=== PATIENT | female | born 1985 ===

== ENCOUNTER 2017-06-03 02:13 | Day surgery (SDC) | payer MEDICAID ==
[2017-06-03] VITALS (16 sets, daily range): BP systolic 73–122; BP diastolic 38–82
[~2017-06-03] VITALS: Ht 172.7 cm; Wt 75.3 kg
[~2017-06-03 02:13] MED LIST: BUPR-126 PO; ESCI20TA38 PO
[2017-06-03] MEDS: NORMOSOL R SOLN(*) 1000 ML BAG 1,000 ML IV PRN ×3 (08:19→15:02)
[2017-06-03] MEDS ORDERED: MIDAZOLAM 2 MG/2 ML VIAL IVP PRN (08:20)
[2017-06-03] MEDS ORDERED: LIDOCAINE/SOD BICARB 8.4% SYR ID ONE (08:20)
[2017-06-03] MEDS ORDERED: FAMOTIDINE 20 MG TAB PO ONE (08:20)
[2017-06-03 08:25] LABS: PLATELET COUNT, AUTOMATED 254 K/uL (150-450)
[2017-06-03] MEDS ORDERED: fentaNYL CITR 250 MCG/5 ML AMP ONE (08:27)
[2017-06-03] MEDS ORDERED: LIDOCAINE 2% IV 100 MG/5ML SYR ONE (08:27)
[2017-06-03] MEDS ORDERED: PROPOFOL EMUL(*) 10MG/ML 20 ML 20 ML ONE (08:28)
[2017-06-03] MEDS ORDERED: ROPIVACAINE 0.2% 20 ML VIAL ONE (09:10)
[2017-06-03] MEDS ORDERED: ROCURONIUM BROM 10 MG/ML 5 ML ONE (09:30)
[2017-06-03] MEDS ORDERED: DEXAMETHASONE SOD 4 MG/ML VIAL ONE (09:32)
[2017-06-03] MEDS ORDERED: ONDANSETRON 4 MG/2 ML VIAL ONE (09:33)
[2017-06-03] MEDS ORDERED: KETOROLAC 30 MG/ML VIAL ONE (09:33)
--- NOTE | 2017-06-03 09:39 | History & Physical ---
History of Present Illness Age of Patient: 31 : 1 Para or TPAL: 1 Chief Complaint Desires Permeant Tubal ligation History of Present Illness Pt is a 31 y/o who presented to clinic for a consultation for a permanent control. Pt reports that she no longer desires to have children and desires tubal ligation. X1 History Obstetrical History: Past Medical History: Depression on Lexapro 20 mg History of Breast implants NKDA Allergies: Coded Allergies: codeine (Verified Allergy, Intermediate, vomiting, fainting, 05/27/17) Social History: Denies use of Alcohol, Tobacco, or recreational drug use. Med Rec Home Meds Reported Medications Bupropion Hcl (WELLBUTRIN SR) 150 Mg Tablet.er, 150 MG PO QDAY, TAB 05/27/17 Escitalopram Oxalate (LEXAPRO) 20 Mg Tablet, 20 MG PO QDAY, TAB 05/27/17 Review of Systems All Systems Reviewed/Normal: Yes, Except as Noted Constitutional: No Fever, No Weight Loss, No Weight Gain, No Chills, No Night Sweats, No Other Neurological: No Syncope, No Confusion, No Weakness, No Dizziness, No Slurred Speech, No Other Eyes: No Vision Change, No Loss of Vision, No Photophobia, No Other ENT: No Hearing Loss, No Sinus Congestion, No Sore Throat, No Ear Ache, No Tinnitus, No Other Cardiovascular: No Chest Pain, No Palpitations, No Orthostatic Hypotension, No Other Respiratory: No Shortness of Breath, No Cough, No Wheezing, No Other Gastrointestinal: No Nausea, No Vomiting, No Diarrhea, No Dysphagia, No Constipation, No Early Satiety, No Hematemesis, No Hematochezia, No Melena, No Abdominal Pain, No Other Genitourinary: No Dysuria, No Hematuria, No Urinary Incontinence, No Other Musculoskeletal: No Pain, No Sprain, No Strain, No Impaired Mobility, No Other Psychiatric: No Depression, No Anxiety, No Other Exam General Exam Vital Signs Vital Signs Date Time Temp Pulse Resp B/P (MAP) Pulse Ox O2 Delivery O2 Flow Rate FiO2 06/03/17 08:17 98.5 87 16 122/70 (87) 98 Room Air General Apperance: Alert/Awake/No Acute Distress Neuro: No Gross deficits Eyes: Normal Extraocular Movement & Vison, PERRLA ENT: Normal Cardiovascular: Regular Rate and Rhythm Respiratory: No Respiratory Distress, Clear to Auscultation Abdomen: Soft, Non-Tender, Non-Distended : Normal Musculoskeletal: No Weakness/Pain Extremities: No Cyanosis,Clubbing or Edema Integumentary: Skin Intact without Lesions or Rash Psychological: Alert & Oriented X3, Appropriate Mood & Affect Medical Decision Making Data Points Result Diagram: 06/03/17 0810 Pre-Admit Course Medical Record Review: Yes VTE Prophylasis: Adult Deep Vein Thrombosis/Pulmonary: No Assessment and Plan BARREL COOPER Assessment: Stable BARREL COOPER Plan: Routine Post-Op Care Problems: (1) Consultation for female sterilization Assessment & Plan: Proceed with Laparoscopic BTL. Follow up in 2 weeks post operative. RAMÍREZ BOWEN DO Jun 03, 2017 09:39
--- NOTE | 2017-06-03 09:42 | OB/GYN Discharge Summary ---
Discharge Summary Reason for Hosp/Final Diag: (1) Consultation for female sterilization Hospital Course & Plan: Pt presented for a Laparoscopic BTL. Underwent procedure with out any difficulty. Went to PACU then recovery where she was discharged home. Lates Vital Signs Vital Signs Date Time Temp Pulse Resp B/P (MAP) Pulse Ox O2 Delivery O2 Flow Rate FiO2 06/03/17 08:17 98.5 87 16 122/70 (87) 98 Room Air Weight (Pounds): 166 Result Diagram: 06/03/17 0810 Condition: Improved Discharge: Home Home Meds Reported Medications Bupropion Hcl (WELLBUTRIN SR) 150 Mg Tablet.er, 150 MG PO QDAY, TAB 05/27/17 Escitalopram Oxalate (LEXAPRO) 20 Mg Tablet, 20 MG PO QDAY, TAB 05/27/17 [facility] [phone], Dr. Patterson [phone] Follow up in: 2 wks PO Discharge Diet: As Tolerates, Resume Prior Admit Diet, Increase Fluid Intake Discharge Activity: As Tolerates, Pelvic Rest RAMÍREZ PATTERSON DO Jun 03, 2017 09:42
[2017-06-03] MEDS ORDERED: SUGAMMADEX SOD 200 MG/2 ML SDV ONE (10:02)
[2017-06-03] MEDS ORDERED: LR(*) 1000 ML BAG 1,000 ML IV ONE (10:18)
--- NOTE | 2017-06-03 10:18 | Post Operative Note ---
Operative Note - CERTIFIED PEST CONTROL TECHNICIAN Operative Day Date: Jun 03, 2017 Time: 10:16 Physicians Surgeon: Ramírez Patterson Anesthesia: GET 20 cc 0.2% Rupivicaine Diagnosis Pre-Op Diagnosis: 31 y/o Desires sterility Post-Op Diagnosis: same Procedure Findings: Normal uterus approximately 8 week size. Normal Tubes and ovaries bilaterally. Falope rings in the mid isthmus region of the falopian tube after procedure completion. Procedure(s): laparoscopic BTl with Falope rings Specimen Removed:(Maybe N/A): 0 Complications: known Fluids Fluids: 600 cc LR U/o 250 CC Estimated Blood Loss: minimal Dictated Date OP Note Dictated: Jun 03, 2017 Time OP Note Dictated: 10:24 RAMÍREZ PATTERSON DO Jun 03, 2017 10:18
[2017-06-03] MEDS ORDERED: METOCLOPRAMIDE 10 MG/2 ML SDV IVP PRN (10:20)
[2017-06-03] MEDS ORDERED: IBUP800T37 PO (10:25)
[2017-06-03] MEDS ORDERED: PER PO (10:25)
[2017-06-03] MEDS ORDERED: fentaNYL CITR 100 MCG/2 ML AMP ONE (10:27)
[2017-06-03] MEDS ORDERED: LIDOCAINE/SOD BICARB 8.4% SYR ONE (10:38)
[2017-06-03] MEDS ORDERED: PROMETHAZINE 25 MG/ML 1 ML AMP ONE (10:48)
[2017-06-03] MEDS ORDERED: IBUPROFEN 800 MG TAB PO SCH (18:00)
--- NOTE | 2017-06-03 18:55 | OPERATIVE REPORT 1 ---
EVENT DATE: June 03, 2017 SURGEON: Gerardo Patterson DO ANESTHESIOLOGIST: Junior Denson MD ANESTHESIA: General endotracheal intubation with 20 mL of 0.2% ropivacaine. PREOPERATIVE DIAGNOSES 1. A 31-year-old 1, para 1. 2. Desires sterility. POSTOPERATIVE DIAGNOSES 1. A 31-year-old 1, para 1. 2. Desires sterility. PROCEDURE PERFORMED Laparoscopic bilateral tubal ligation with Falope rings. FINDINGS Normal fallopian tubes bilaterally. Normal ovaries bilaterally. Uterus 8 weeks size. Smooth liver. Normal-appearing gallbladder. Falope rings in the mid isthmus region on the fallopian tubes after procedure completion. ESTIMATED BLOOD LOSS Minimal. FLUIDS Lactated Ringer's 600 mL. URINE OUTPUT 250 mL PATHOLOGY None. COMPLICATIONS None known. CONDITION Stable to the PACU, then to recovery. INDICATIONS AND CONSENT The patient is a 31-year-old 1, para 1, who presented to clinic for consultation on tubal ligation. The patient desired permanent sterility. The patient was counseled on risks, benefits, and alternatives and had appropriate consents signed. She was scheduled for surgery accordingly. DESCRIPTION OF PROCEDURE The patient was taken to the operating room where she had a general endotracheal intubation with anesthesia achieved. She was then placed in the dorsal lithotomy position. She was prepped and draped in the usual sterile manner. A sterile speculum was placed in the vagina to help visualize the cervix. An Allis clamp was placed on the anterior lip of the cervix. The uterus was sounded to 8 cm. A uterine manipulator was placed inside the uterus to help with manipulation during the procedure. Once the manipulator was placed , the surgeon's gloves were changed and the speculum removed. The attention was then turned to the abdomen. A 5 mm incision was created in the umbilicus with an 11 blade scalpel. A Veress needle was used to achieve a pneumoperitoneum. Once the pneumoperitoneum was achieved, direct laparoscopic entry through a 5 mm Visiport was performed with the area of entry inspected and found to be without injury. The 8 mm trocar was then placed 2 cm above the pubic symphysis. The right and left ovaries and fallopian tubes were easily visualized. The right fallopian tube was grasped in the mid isthmus region with the Falope ring applicator. The Falope ring was applied with minimal difficulty, and immediate blanching of that segment was noted. Attention was then turned to the left fallopian tube. The left fallopian tube was grasped with the Falope ring applicator and brought into the applicator device with the Falope band placed over the mid isthmus region with immediate blanching noted. At this point, pictures were taken. The 8 mm trocar was removed under laparoscopic visualization and noted to be hemostatic. The pneumoperitoneum was released, and the trocars were removed from the abdomen. The skin incisions were then closed with a 4-0 Monocryl in an interrupted manner and Dermabond placed over the incisions. The uterine manipulator was then removed from the vagina. The patient was cleaned, awakened, and transferred to the recovery room in stable condition. JOHNNY
== END 2017-06-03 11:35 | disposition home or self-care (01) ==
LOC: OR 02:13
PROVIDERS: ATTEND Student in an Organized Health Care Education/Training Program
DX: Z30.2 Encounter for sterilization (principal); F32.9 Major depressive disorder, single episode, unspecified
CPT/HCPCS: 36415; 58615; 84703; 85025; J1100; J1885; J2001; J2405; J2550; J2704; J2795; J3010

== ENCOUNTER → 2018-04-19 | Outpatient (CLI) | payer MEDICAID ==
[~2018-04-19] MED LIST changes: +IBUP800T37 PO; +MELA5TAB6 PO; +PER PO
--- NOTE | 2018-04-19 10:26 | RADIOLOGY IMAGING REPORT ---
FACILITY: [facility] - [place], [place] PATIENT NAME: Kathrine Aquino : 1985 MR: [id number] V: [id number] EXAM DATE: ORDERING PHYSICIAN: KEN AMOS TECHNOLOGIST: Location: [facility] - [place] Patient: Kathrine Aquino : 1985 Visit/Account:[id number] Date of Sevice: 04/19/2018 KIDNEYS HISTORY: Cystic structure found on CT. COMPARISON: CT dated April 05, 2018. FINDINGS: Kidneys: Right kidney- 9.9 x 3.7 x 4.7 cm with normal parenchymal thickness and echogenicity. Left kidney- 10.1 x 4.6 x 4.8 cm with normal parenchymal thickness and echogenicity. Cystic lesion w ithin the superior pole the left kidney with mural peripheral calcification. Lesion measures 1.3 x 1 .4 x 1.1 cm. No definitive solid noncalcified component identified. Uniform and symmetric blood flow in each kidney by Doppler ultrasound. Hydronephrosis: None. Bladder: Unremarkable. Abdominal aorta and IVC: Patent by Doppler ultrasound. IMPRESSION: 1. Cystic lesion with mural calcified peripheral calcification measuring up to 1.4 cm. This represe nts a Bosniak 2F lesion. Six-month follow-up is recommended to ensure stability. Report Dictated By: Donavan Vera MD at 04/19/2018 10:03 AM Report E-Signed By: Donavan Vera MD at 04/19/2018 10:07 AM WSN:[email or web address]
== END ==
LOC: US 02:38
PROVIDERS: ATTEND Nurse Practitioner Family
DX: N28.1 Cyst of kidney, acquired (principal)
CPT/HCPCS: 76705

== ENCOUNTER → 2018-05-05 | Outpatient (CLI) | payer MEDICAID ==
[~2018-05-05] MED LIST changes: +BARIUM SULFATE 176 GM BTL PO ONE; +BARIUM SULFATE 340 GM POWD ONE; +PANT40TA65 PO
--- NOTE | 2018-05-05 10:18 | RADIOLOGY IMAGING REPORT ---
FACILITY: [facility] - [place] PATIENT NAME: Kathrine Aquino : 1985 MR: [id number] V: [id number] EXAM DATE: ORDERING PHYSICIAN: ROBERT PETERSON TECHNOLOGIST: Location: [facility] Patient: Kathrine Aquino : 1985 Visit/Account:[id number] Date of Sevice: 05/05/2018 PELVIC HISTORY: Right lower quadrant pain, intermittent gas and bloating TECHNIQUE: Transvaginal and transabdominal ultrasound pelvis. COMPARISON: CT on pelvis April 05, 2018 FINDINGS: Uterus: ; 8.6 cm length x 4.2 cm AP x 6 cm transverse. Myometrium: There is a 1.8 x 1.6 x 1.7 cm anterior fibroid in the mid to lower uterine body Endometrium: Unremarkable; double thickness 11.1 mm. Cervix: Nabothian cysts. Ovaries: Right - 3.3 x 4.1 x 2.6 cm. There is a 1.8 cm cyst in the right ovary with slightly irregular w alls may represent a partially collapsed cyst Left - 2.8 x 2.9 x 1.9 cm. Blood flow is documented in each ovary by duplex Doppler ultrasound. Adnexa: Grossly unremarkable. Free pelvic fluid: Trace. IMPRESSION: 1.8 cm anterior fibroid in the mid to lower uterine body 1.8 cm cyst in the right ovary with slightly irregular aiken may represent a partially collapsed cyst with a trace amount of free pelvic fluid Report Dictated By: Sherry Tapia MD at 05/05/2018 10:03 AM Report E-Signed By: Sherry Tapia MD at 05/05/2018 10:12 AM WSN:[email or web address]
--- NOTE | 2018-05-05 10:18 | RADIOLOGY IMAGING REPORT ---
FACILITY: [facility] - [place] PATIENT NAME: Kathrine Aquino : 1985 MR: [id number] V: [id number] EXAM DATE: ORDERING PHYSICIAN: ROBERT PETERSON TECHNOLOGIST: Location: [facility] - [place] Patient: Kathrine Aquino : 1985 Visit/Account:[id number] Date of Sevice: 05/05/2018 US ABD LIMITED ULTRASOUND HISTORY: Nausea and vomiting COMPARISON: CT abdomen pelvis April 05, 2018 FINDINGS: Gallbladder: There are multiple stones seen within the gallbladder. The largest measures approximate ly 2 cm in diameter The gallbladder neck Is a negative Bullard sign by technologist notation. The gallbladder wall measur ed 3.4 mm in thickness. Liver: Negative. Common duct: Normal, 2.7 mm diameter. Pancreas: Partially obscured by bowel, visualized aspects unremarkable. Right kidney: There is very mild fullness of the right renal pelvis. The right kidney measures 11.2 cm in length Upper abdominal aorta and IVC: Patent. Ascites: None visualized. IMPRESSION: The gallbladder is filled with stones largest measuring approximately 2 cm in diameter. No evidence of positive Bullard sign or biliary ductal dilatation. The gallbladder wall measures 3.4 mm in thickness Mild fullness of the right renal pelvis Report Dictated By: Sherry Tapia MD at 05/05/2018 10:12 AM Report E-Signed By: Sherry Tapia MD at 05/05/2018 10:15 AM WSN:[email or web address]
--- NOTE | 2018-05-05 12:12 | RADIOLOGY IMAGING REPORT ---
FACILITY: [facility] PATIENT NAME: Kathrine Aquino : 1985 MR: [id number] V: [id number] EXAM DATE: ORDERING PHYSICIAN: ROBERT PETERSON TECHNOLOGIST: Location: [facility] [place] Patient: Kathrine Aquino : 1985 Visit/Account:[id number] Date of Sevice: 05/05/2018 Exam type: XR UPPER GI SERIES W/O KUB History: Abdomen pain, difficulty swallowing Comparison: None. Findings: Double contrast upper GI series was performed with thick and thin barium and air contrast the patient was hesitant to swallow a large bolus of barium therefore the esophagus was not completely distended . No significant narrowing or mucosal erosion was identified within the esophagus. Gastroesophageal reflux was not observed. No abnormality of the stomach duodenal bulb or duodenal C-loop was identif ied.. The fluoroscopy dose area product was 529.74 micro-Grant per meter squared IMPRESSION: 1. Unremarkable upper GI series. Of note the patient was hesitant to swallow large bolus of barium there for the esophagus was not com pletely distended however there is no demonstration of significant narrowing, mucosal erosion or stefanie roesophageal reflux Report Dictated By: Sherry Tapia MD at 05/05/2018 12:01 PM Report E-Signed By: Sherry Tapia MD at 05/05/2018 12:04 PM WSN:[email or web address]
== END ==
LOC: US 01:20
PROVIDERS: ATTEND Surgery
DX: D25.9 Leiomyoma of uterus, unspecified (principal); N83.201 Unspecified ovarian cyst, right side
CPT/HCPCS: 74240; 76705; 76830; 76856

== ENCOUNTER 2018-06-22 01:43 | Day surgery (SDC) | payer MEDICAID ==
[~2018-06-22] VITALS: Ht 172.7 cm; Wt 77.1 kg
[2018-06-22] VITALS (9 sets, daily range): BP systolic 68–126; BP diastolic 26–79
[~2018-06-22 01:43] MED LIST changes: +ACETAMINOPHEN 500 MG TAB PO ONE; +AMPICILLIN/SULBACT (*) 3 GM VL 3 GM in NS(*) 0.9% 100 ML BAG 100 ML IVPB ONE; +ASCO-182 PO; -BARIUM SULFATE 176 GM BTL PO ONE; -BARIUM SULFATE 340 GM POWD ONE; +FAMOTIDINE 20 MG TAB PO ONE; +INDOCYANINE GREEN 25 MG VIAL IVP ONE; +LIDOCAINE/SOD BICARB 8.4% SYR ID ONE; +MIDAZOLAM 2 MG/2 ML VIAL IVP PRN; +NORMOSOL R SOLN(*) 1000 ML BAG 1,000 ML IV PRN; +PREGABALIN 150 MG CAPSULE PO ONE
[2018-06-22] MEDS ORDERED: AMPICILLIN/SULBACT (*) 3 GM VL 3 GM in NS(*) 0.9% 100 ML BAG 100 ML IVPB ONE (10:40)
[2018-06-22] MEDS ORDERED: PREGABALIN 150 MG CAPSULE PO ONE (10:40)
[2018-06-22] MEDS ORDERED: NORMOSOL R SOLN(*) 1000 ML BAG 1,000 ML IV PRN (10:40)
[2018-06-22] MEDS ORDERED: FAMOTIDINE 20 MG TAB PO ONE (10:40)
[2018-06-22] MEDS ORDERED: ACETAMINOPHEN 500 MG TAB PO ONE (10:40)
[2018-06-22] MEDS ORDERED: MIDAZOLAM 2 MG/2 ML VIAL IVP PRN (10:40)
[2018-06-22] MEDS ORDERED: LIDOCAINE/SOD BICARB 8.4% SYR ID ONE (10:40)
[2018-06-22] MEDS ORDERED: ROPIVACAINE 0.5% 20 ML VIAL ONE (10:43)
[2018-06-22] MEDS ORDERED: ONDANSETRON 4 MG/2 ML VIAL ONE (11:12)
[2018-06-22] MEDS ORDERED: DEXAMETHASONE SOD 4 MG/ML VIAL ONE (11:12)
[2018-06-22] MEDS ORDERED: METOCLOPRAMIDE 10 MG/2 ML SDV ONE (11:12)
[2018-06-22] MEDS ORDERED: LIDOCAINE MPF 1% 5 ML VIAL ONE (11:12)
[2018-06-22] MEDS ORDERED: SUGAMMADEX SOD 200 MG/2 ML SDV ONE (11:12)
[2018-06-22] MEDS ORDERED: PROPOFOL EMUL(*) 10MG/ML 20 ML 20 ML ONE (11:12)
[2018-06-22] MEDS ORDERED: fentaNYL CITR 250 MCG/5 ML AMP ONE (11:15)
[2018-06-22] MEDS ORDERED: INDOCYANINE GREEN 25 MG VIAL IVP ONE (11:40)
[2018-06-22] MEDS ORDERED: DOCU-416 PO (12:58)
[2018-06-22] MEDS ORDERED: OXYC-373 PO (12:58)
--- NOTE | 2018-06-22 13:01 | Short(Outpt) Discharge Summary ---
Discharge Summary Reason for Hosp/Final Diag: (1) Cholelithiasis Status: Chronic Hospital Course & Plan: Robotic cholecystectomy completed without problems. Departure Discharge to: Home, Self Care Discharge Instructions Home Meds Active Scripts Docusate Sodium (COLACE) 100 Mg Capsule, 1 CAP PO BID, #30 CAPSULE 0 Refills Prov:ROBERT PETERSON MD 06/22/18 Oxycodone Hcl/Acetaminophen (OXYCODONE-ACETAMINOPHEN 5-325) 1 Each Tablet, 1 TAB PO Q4H PRN for PAIN, #20 TAB 0 Refills Prov:ROBERT PETERSON MD 06/22/18 Reported Medications Ascorbic Acid (VITAMIN C) 500 Mg Tablet, 500 MG PO QDAY, TAB 05/29/18 Melatonin (MELATONIN) 5 Mg Tablet, 1 TAB PO QHS 04/17/18 Follow up Referrals: General Surgery - 07/10/18 @ Surgery, General with ROBERT PETERSON MD You have a follow up appointment scheduled with Dr. Peterson on 07/10/18, at 9:30am. Diet: Regular Activity: No Heavy Lifting Special Instructions: You may removed the white surgical dressings on 06/24/18, then you can shower. After showering, leave the incisions open to air but leave the steristrips in place until they fall off on their own. Do not immerse the incisions for 2 weeks. Avoid any activity that involves straining or lifting more than 10 pounds for 2 weeks after surgery. Problem Qualifiers (1) Cholelithiasis: Cholelithiasis location: gallbladder Cholecystitis presence: without cholecystitis Biliary obstruction: without biliary obstruction Qualified Codes: K80.20 - Calculus of gallbladder without cholecystitis without obstruction ROBERT PETERSON MD Jun 22, 2018 13:01
--- NOTE | 2018-06-22 13:07 | Post Operative Progress Note ---
Post Operative Progress Note Date: Jun 22, 2018 Time: 13:01 Surgeon: Adriane Dictation number: [id number] Anesthesia: GETA by Dr. Ceballos Pre-Op Diagnosis: Symptomatic Gallstones Post-Op Diagnosis: ZOE Findings: C/W dx Procedure(s): Robotic cholecystectomy Specimen Removed:(May be N/A): GB and contents Complications: None Fluids: See anesthesia record Estimated Blood Loss: Minimal Date OP Note Dictated: Jun 22, 2018 Time OP Note Dictated: 13:02 ROBERT PETERSON MD Jun 22, 2018 13:07
[2018-06-22] MEDS ORDERED: fentaNYL CITR 100 MCG/2 ML AMP ONE (13:21)
--- NOTE | 2018-06-22 13:30 | OPERATIVE REPORT 1 ---
EVENT DATE: June 22, 2018 SURGEON: Lebron Forrest MD ANESTHESIOLOGIST: Kashmir Ceballos MD ANESTHESIA: General endotracheal. PREOPERATIVE DIAGNOSIS Symptomatic gallstones. POSTOPERATIVE DIAGNOSIS Symptomatic gallstones. PROCEDURE PERFORMED Robotic cholecystectomy. COMPLICATIONS None. CONDITION Stable. ESTIMATED BLOOD LOSS Minimal. SPECIMEN Gallbladder and contents. INDICATIONS This is a 32-year-old female who presented to my office with postprandial right upper quadrant abdominal pain with nausea and bloating. Ultrasound revealed gallbladder full of stones and she was requesting to have her gallbladder removed. PROCEDURE The patient was brought into the operating room and placed supine on the operating table. General endotracheal anesthesia was administered and her abdomen was prepped and draped in the sterile fashion. A time-out was completed. I injected the infraumbilical skin with 0.5% ropivacaine plain. I made a curvilinear smiley face incision in the infraumbilical rim and dissected through the dermis and into the subcutaneous fat. I identified the midline fascia and made a vertical incision in the midline fascia, grasped the fascial edge with Olvin clamps and bluntly entered the peritoneal cavity with my finger. I placed two interrupted 0 Vicryl sutures transversely through the vertical fascial defect and inserted a robotic Hill type 12 mm port through this wound and secured into place with sutures. I insufflated the abdomen to a pressure of 15 mmHg and then under direct visualization inserted an 8 mm robotic port in the right mid abdomen and two 8 mm robotic ports in the left abdomen, one in the left subcostal space in the anterior axillary line and fci between this 8 mm port and the umbilical port. Next, I had the patient placed in reverse Trendelenburg and planed towards her left and removed the viscera from the right upper quadrant and brought the robot in and docked it and targeted it and inserted the instruments. I then scrubbed out and went to the console and grasped the fundus of the gallbladder and retracted towards the patient's right shoulder and retracted the infundibulum towards the patient's right hip. Then patient's anatomy was very clear and I could clearly see the cystic duct going into the common duct. I then used the hook to divide the peritoneum overlying the infundibulum in both the medial and lateral aspects of the gallbladder and then stripped the peritoneum and subperitoneal contents down from the infundibulum to open the triangle of Calot. I then used a combination of both electrocautery and blunt dissection to clean off the cystic duct circumferentially and I used FireFly intermittently throughout this procedure to confirm that I was at the cystic duct and well away from the common duct structures. I cleaned out the artery and duct and then clipped the artery proximally and distally and divided between clips and clipped the duct distally with three clips but away from the common duct and then one clip at the infundibulum cystic duct junction and divided the cyst duct. I then divided the posterior attachments of the gallbladder, from the gallbladder fossa and the gallbladder was placed in a surgical specimen retrieval bag and removed from abdomen through the umbilical port site. I inspected the gallbladder and fossa and there were a couple of little areas that had very slight oozing and this was controlled with the hook electrocautery very easily. At the end of this case, there was no oozing or bile leak from the gallbladder fossa and the cystic duct and artery stumps were secured with clips and without any bleeding or bile leak. I then removed all of the instruments and then undocked the robot. I desufflated the abdomen and closed the midline fascia with a [id number] 0 Vicryl suture between the first two sutures and then tied all three of these down with good reapproximation of the fascial edges. I then closed the skin at each port site with 4-0 Monocryl running subcuticular suture. The skin was cleaned and dried and Steri-Strips applied followed by sterile surgical dressings. The patient was awakened and extubated in the operating room and transported to the recovery room in stable condition, having tolerated the procedure without any apparent problems. JOHNNY
--- NOTE | 2018-06-22 19:31 | NUR ---
1530: REPORT FROM Carmen CHAVIRA RN, PT VSS. 1537: PT GIVEN PUDDING, STATES THAT SHE IS WANTING TO GO HOME 1537: PT STATES DESIRE TO GO TO THE RESTROOM. PT GIVEN ORAL ANALGESIC 1538: ORTHOSTATIC BP'S SITTING GOOD 1540: ORTHOSTATIC BP'S STANDING, PT STATES NAUSEA, GETS PAIL, AND THEN VOMITS. PT IT HELPED BACK INTO BED. GIVEN BOLUS OF 500 NR, CRACKERS, AND MARY AIL. 1615: PT STATES THAT SHE IS FEELING MUCH BETTER, STATES DESIRE TO GO HOME 1630: ORTHOSTATIC BP'S STARTED, NO SIGNIFICANT CHANGES 1635: HYPOACTIVE BOWL SOUNDS, SCANT BLOOD ON BANDAGES FAR LEFT AND FAR RIGHT OTHERS DRY -L WRIST IV DC'ED CATH INTACT PRESSURE DRESSING APPLIED 1645: PT WAITING FOR RIDE. 1715: DISCHARGE INSTRUCTIONS GIVEN TO FRIEND AND PT 1726: PT WALKED TO CAR
== END 2018-06-22 13:58 | disposition home or self-care (01) ==
LOC: OR 01:43
PROVIDERS: ATTEND Surgery
DX: K80.80 Other cholelithiasis without obstruction (principal)
CPT/HCPCS: 47562; 88304; J0295; J1100; J2001; J2405; J2704; J2765; J2795; J3010; J7050; S2900